=== PATIENT | male | born 1945 | race Caucasian/White ===

== ENCOUNTER 2023-09-25 09:50 | Emergency (ER) | payer OTHER ==
[~2023-09-25] VITALS: Ht 182.9 cm; Wt 79.4 kg
[2023-09-25 10:23] VITALS: BP 159/78
[2023-09-25 10:50] LABS: Calcium, Ionized (POC) 1.14 mmol/L (1.10-1.46); Chloride (POC) 96 mmol/L (98-108); Creatinine (POC) 0.8 mg/dL (0.8-1.3); Glucose (ISTAT POC) 119 mg/dL (70-99); Hemoglobin (POC) 14.6 g/dL (13.5-17.5); Potassium (POC) 3.6 mmol/L (3.5-5.5); Sodium (POC) 132 mmol/L (135-148); Total CO2 (POC) 27 mmol/L (21-32)
[2023-09-25 11:55] LABS: Source, Urine Clean Catch
[2023-09-25 11:58] LABS: Bilirubin, Urine Neg (Neg); Blood, Urine Neg (Neg); Color, Urine Yellow (P-Yellow); Glucose Qualitative, Urine Neg (Neg); Ketones, Urine 2+ (Neg); Leukocyte Esterase, Urine 1+ (Neg); Nitrite, Urine Neg (Neg); Protein, Urine 2+ (Neg); Urobilinogen, Urine NORM (Normal); pH, Urine 6.5 (5.0-8.0)
[2023-09-25 12:13] LABS: Appearance, Urine Hazy (Clear)
[2023-09-25 12:15] LABS: Bacteria Few /hpf; Hyaline Casts 0-2 /lpf (0-2); Red Blood Cells, Urine 0-2 /hpf (0-2); Squamous Epithelial Cells Few /hpf (Few)
[2023-09-25] MEDS ORDERED: Ativan1 MG SL (12:40)
[2023-09-25] MEDS ORDERED: Macrobid 100 M100 MG PO (12:40)
== END 2023-09-25 12:53 | disposition home or self-care (01) ==
LOC: ER 09:50
PROVIDERS: Emergency Medicine
DX: G47.00 Insomnia, unspecified (principal); F41.9 Anxiety disorder, unspecified; R30.0 Dysuria
CPT/HCPCS: 51798; 80047; 81001; 85014; 87077; 87086; 87186; 99283; A9270